=== PATIENT | female | born 1975 | race Native Hawaiian/Other Pacific Islander ===

== ENCOUNTER 2016-11-07 13:26 | Emergency (ER) | payer OTHER ==
[~2016-11-07] VITALS: Ht 188 cm; Wt 99.8 kg
== END 2016-11-07 15:27 | disposition home or self-care (01) ==
LOC: ED 13:26
DX: S51.852A Open bite of left forearm, initial encounter (principal); W54.0XXA Bitten by dog, initial encounter; Y92.89 Other specified places as the place of occurrence of the external cause
CPT/HCPCS: 90471; 90715; 96372; 99283; J0696